=== PATIENT | male | born 1975 | race Caucasian/White ===

== ENCOUNTER 2017-05-06 22:53 | Emergency (ER) | payer OTHER ==
[2017-05-06 23:03] VITALS: BP 126/84
[2017-05-06] MEDS ORDERED: IBUPROFEN 400 MG TABLET PO ONE (23:34)
[2017-05-06] MEDS ORDERED: IBUPROFEN 400 MG TABLET ONE (23:37)
--- NOTE | 2017-05-06 23:44 | ERNOTE ---
Upper Extremity HPI - Narrative Date of Service: 05/06/17 - General Extremities Pain Location: hand: right - palm side, below 5th finger Time Seen by Provider: 05/06/17 23:28 Source: patient Exam Limitations: clinical condition - Immun/Allergies/Home Medications Immunizations: IMMUNIZATION HX Immunizations Up to Date No History of Influenza Vaccine No Hx Pneumococcal Vaccination No Allergies/Adverse Reactions: Allergies Allergy/AdvReac Type Severity Reaction Status Date / Time No Known Drug Allergies Allergy Verified 05/06/17 23:03 Home Medications: HOME MEDICATIONS Mupirocin [Bactroban] 1 appl TP BID #22 gm 05/07/17 [Last Taken Unknown] predniSONE [Prednisone] 2 tab PO DAILY #14 tab 05/07/17 [Last Taken Unknown] - Pain Score Pain Score #1 Pain Score: 7 - History of Present Illness Narrative: Armando is a 41 year old male who presents to the er with c/o right palm pain for 2 months that has worsened over the last 2 days. states that he suffered a sliver in his right hand, palm side, below his 5th finger that he removed - this was 2 months ago. 2 weeks later, the area that suffered the sliver became reddened and swollen, so he went to [place] [facility] and received an unknown antibiotic that he states he took twice a day (big white pills per pt). approximately 2 days ago, pt states that the area again became swollen and red again and very tender when touched. presents for eval tonight. denies any fever , body aches or chills. no n/v. Occurred: other - 2 months ago, worsening over the last 2 days Location of Incident: home Severity: moderate Method of Injury: Reports: direct blow Loss of Consciousness: Reports: no loss of consciousness Modifying Factors - (Improves): Reports: immobilization, pain medication, rest Modifying Factors - (Worsens): Reports: jarring, movement Associated Symptoms: Denies: tingling, weakness, numbness distally, loss of feeling Other Injuries: Reports: none Prior Treament: Reports: recently seen, treated by physician, similar symptoms before Review of Systems - Review of Systems Constitutional: Present: no symptoms reported EYE: Present: no symptoms reported ENT: Present: no symptoms reported Respiratory: Present: no symptoms reported Cardiology: Present: no symptoms reported Gastrointestinal/Abdominal: Present: no symptoms reported Genitourinary: Present: no symptoms reported Musculoskeletal: Present: See HPI Skin: Present: See HPI Neurological: Present: no symptoms reported Endocrine: Present: no symptoms reported Hematologic/Lymphatic: Present: no symptoms reported Psych: Present: no symptoms reported All Other Systems: All systems neg except as marked - Patient's Past Medical History Patient History - Medical: No pertinent hx Patient History - Cardiac/Respiratory: No pertinent hx Patient History - Cancer: No Hx of Cancer Patient History - Surgical Procedures: Other - Social History Living Situations: home Abuse History: No History of abuse Psych History: No pertinent hx Smoking Status: Current every day smoker Alcohol Use: none Drug Use: none - Immunizations Immunizations Up to Date: No Hx Pneumococcal Vaccination: No History of Influenza Vaccine: No Physical Exam - Physical Exam General Appearance: Present: wd/wn, alert, no apparent distress Eye Exam: Normal inspection: bilateral Neck: Present: normal inspection, supple Respiratory: Present: no respiratory distress, normal breath sounds, no accessory muscle use, chest nontender, lungs clear Cardiovascular/Chest: Present: regular rate, rhythm, normal peripheral pulses Peripheral Pulses: N=norm/S=strong/W=weak/B=bound/A=absent: Radial (R): Strong, Normal, Radial (L): Normal, Strong Gastrointestinal/Abdominal: Present: nontender, nondistended, soft Rectal Exam: Present: deferred Male Genitals Exam: Present: deferred Back Exam: Present: normal inspection Extremity Exam: Present: normal range of motion, other - right hand, palm side, just below 5th finger has lon sized area of swelling with surrounding erythema - very tender to palpation - callous noted - unable to fully attain if retained splinter is present. Neurological Exam: Present: alert, oriented, normal mood/affect Skin Exam: Present: normal color, warm/dry ED Progress - Date and Time Seen: Date and Time: 05/07/17 00:27 pain better with ibuprofen. labs review with patient. although labs are unremarkable, i still believe that patient has inflammatory response initiated. will give steroids IM now and start oral steroids in am. start epsom salt soaks of right hand bid x7 days in am. instructed pt if not better or if worse to call pcp. - Results and Orders Results and Orders: Laboratory Tests 05/06/17 23:34 WBC 9.6 Hgb 16.1 Hct 44.6 Plt Count 341 Neutrophils % 53.5 Monocytes % 9.3 H Eosinophils % 4.0 H Laboratory Tests 05/06/17 05/06/17 23:48 23:48 ESR 4 Sodium 142 Potassium 3.8 Chloride 103 Carbon Dioxide 28.6 Anion Gap 14.2 H BUN 19 Creatinine 1.28 AST 22 ALT 44 C-Reactive Prot, Quant Less than 0.2 - Vital Signs Vital Signs: Vital Signs 05/06/17 22:58 Temperature 36.3 C L Pulse Rate 83 Respiratory 18 Rate Blood Pressure 126/84 O2 Sat by Pulse 97 Oximetry - X-Ray X-Ray #1 X-Ray: hand - right Interpretation: Interp. by id X-ray Comments: no acute fracture, no foreign body seen. sg - Progress/Reassessment Chief Complaint: Hand Injury/Pain Progress:: Improved Departure Clinical Impression: Right hand pain, Swelling of right hand - Departure Disposition: Home self-care Condition: Fair Instructions: Hand Contusion Additional Instructions: soak hand twice a day in a warm bath with epsom salts for 7 days. if not improved in 7 days or worse, follow up with primary care physician. start oral prednisone friday in the am - take with food. start epsom salt soaks friday am. Referrals: Qing Westfall ARNP [Primary Care Provider] - Prescriptions: Mupirocin [Bactroban] 1 appl TP BID #22 gm predniSONE [Prednisone] 2 tab PO DAILY #14 tab
[2017-05-06 23:49] LABS: Hematocrit 44.6 % (42.0-52.0); Hemoglobin 16.1 gm/dL (13.5-18.0); Mean Cell Volume 87.5 fl (78-100); Mean Corpuscular Hemoglobin 31.6 pg (27-31); Mean Corpuscular Hgb Conc 36.1 g/dl (32-36); Mean Platelet Volume 8.8 fl (6.0-9.5); Neutrophil # 5.2 K/mm3 (1.3-6.0); Neutrophil % 53.5 % (42-75.0); Platelet Count 341 K/mm3 (150-450); Red Cell Distribution Width 11.8 % (11.5-14.0); White Blood Count 9.6 K/mm3 (4.0-10.5)
[2017-05-07 00:03] LABS: ALT 44 U/L (19-67); AST 22 U/L (0-48); Albumin * 4.1 gm/dl (3.4-5.0); Alkaline Phosphatase * 85 U/L (50-170); Anion Gap 14.2 mmol/L (6.8-13.8); BUN/Creatinine Ratio 14.8 (9.0-21.6); Bilirubin, Total 0.4 mg/dL (0.0-1.1); Blood Urea Nitrogen 19 mg/dL (6-23); Ca. Corrected For Albumin 9.4 mg/dL (8.4-10.2); Calcium * 9.8 mg/dL (7.9-10.9); Carbon Dioxide 28.6 mmol/L (24-32.6); Chloride 103 mmol/L (97-106); Glucose * 104 mg/dL (70-110); Potassium 3.8 mmol/L (3.4-4.6); Sodium 142 mmol/L (132-142); Total Protein 7.7 gm/dL (6.2-8.2)
--- OUTSIDE RECORDS SUMMARY | 2017-05-07 00:13 | XMS REPORT | Continuity of Care Document ---
:1975 Author Organization [facility] ([facility]) [place] [address] Phone [phone] Care Team Providers Name Role Phone Binta Robles Primary Care Provider [phone] Source Comments This disclosure is being made pursuant to the Care Everywhere program, applicable federal and state laws, and may not contain all informaitonavailable regarding this patient.[facility] ([facility]) Active Allergies and Adverse Reactions No Known Allergies Current Medications No known medications Active Problems Problem Noted Date S/P shoulder surgery 07/28/2013 Rotator cuff tear 06/01/2013 Bilateral shoulder pain 01/25/2013 Upper back pain, chronic 01/25/2013 Nicotine dependence 01/25/2013 Social History Tobacco Use Types Packs/Day Years Used Date Current Every Day Smoker Cigarettes 0.5 15 Smokeless Tobacco: Former User Chew Quit: 12/01/1997 Tobacco Cessation:Ready to Quit: No; Counseling Given: Yes Comments: Alcohol Use Drinks/Week oz/Week Comments Yes once every 3-4 months Last Filed Vital Signs Vital Sign Reading Time Taken Blood Pressure 119/67 07/14/2014 2:10 PM CDT Pulse 66 07/14/2014 2:10 PM CDT Temperature 36.6 C (97.9 F) 07/14/2014 2:10 PM CDT Respiratory Rate 18 07/19/2013 4:00 PM CDT Height 1.676 m (5' 6") 07/14/2014 2:10 PM CDT Weight 72.576 kg (160 lb) 07/14/2014 2:10 PM CDT Body Mass Index 25.84 07/14/2014 2:10 PM CDT Oxygen Saturation 99% 07/14/2014 2:10 PM CDT Plan of Care Patient Goal Type Goal Lifestyle Quit smoking / using tobacco Health Maintenance Due Date Last Done Comments Hepatitis B Vaccine (1 of 3 - Primary Series) 1975 Tdap Vaccine 1987 MMR Vaccine 1994 Pneumococcal Vaccine (1 of 1 - PPSV23) 1995 Td Vaccine 09/27/2014 09/27/2004 Influenza Vaccine: Seasonal (#1) 07/01/2016 Lipid Disorder Screening 01/25/2018 01/25/2013 Results from Last 3 Months Not on file
[2017-05-07] MEDS ORDERED: METHYLPREDNISOLONE SOD SUCC/PF 40 MG/ML VIAL IM ONE (00:23)
[2017-05-07] MEDS ORDERED: METHYLPREDNISOLONE SOD SUCC/PF 40 MG/ML VIAL ONE (00:34)
== END 2017-05-07 00:42 | disposition home or self-care (01) ==
LOC: ER 22:53
DX: M79.641 Pain in right hand (principal); R22.31 Localized swelling, mass and lump, right upper limb; F17.200 Nicotine dependence, unspecified, uncomplicated